=== PATIENT | female | born 1945 | race Caucasian/White ===

== ENCOUNTER → 2019-08-26 | Outpatient (CLI) | payer MEDICARE, OTHER ==
--- NOTE | 2019-08-26 09:08 | RAD ---
DATE: 08/26/2019 EXAM: MAMMO TONJA SCREENING BILATERAL HISTORY: Routine screening COMPARISON: 08/06/2012 and 01/12/2015 mammographic exams This study was interpreted with the benefit of Computerized Aided Detection (CAD). Breast Density: SCATTERED The breast parenchyma shows scattered fibroglandular densities. Breast parenchyma level B. FINDINGS: No suspicious calcifications or distortion. Multiple small masses are present and stable. There is a small asymmetry at the left lower outer breast best seen on the CC projection which is more evident than on prior exams. It is small in size measuring 0.7 cm diameter and is well-circumscribed located 11 cm deep from the nipple. It is in the 5:00 to 6:00 region. IMPRESSION: Left breast asymmetry BI-RADS CATEGORY: 0 INCOMPLETE: NEEDS ADDITIONAL IMAGING EVALUATION AND/OR PRIOR MAMMOGRAMS FOR COMPARISON. RECOMMENDED FOLLOW-UP: ADD ADDITIONAL IMAGING. Spot compression imaging of the left outer breast recommended. Ultrasound may be needed. PQRS compliance statement: Patient information was entered into a reminder system with a target due date for the next mammogram. Mammography is a sensitive method for finding small breast cancers, but it does not detect them all and is not a substitute for careful clinical examination. A negative mammogram does not negate a clinically suspicious finding and should not result in delay in biopsying a clinically suspicious abnormality. "Our facility is accredited by the [employer] Mammography [employer]."
== END | disposition home or self-care (01) ==
LOC: MAMMO 07:43
PROVIDERS: ATTEND Family Medicine
DX: Z12.31 Encounter for screening mammogram for malignant neoplasm of breast (principal); N64.89 Other specified disorders of breast; N63.20 Unspecified lump in the left breast, unspecified quadrant; N63.10 Unspecified lump in the right breast, unspecified quadrant
CPT/HCPCS: 77063; 77067

== ENCOUNTER → 2019-09-07 | Outpatient (CLI) | payer MEDICARE, OTHER ==
--- NOTE | 2019-09-07 18:02 | RAD ---
Study: Ultrasound breast left INDICATION: Left breast callback. COMPARISON: Correlation is made to the screening mammogram from 08/26/2019 TECHNIQUE: Targeted diagnostic sonographic evaluation of a portion of the left breast to evaluate a region of concern seen by screening mammography. FINDINGS: Targeted of the left breast is performed with sonography in the retroareolar region as well as at the lower outer quadrant. At the 5:00 location approximately 9 cm from the nipple, an avascular cluster of small cysts is identified that corresponds to the mammographic abnormality. This area measures approximately 0.5 x 0.2 x 0.6 cm. No findings suspicious for malignancy within the evaluated left breast. IMPRESSION: Small cluster of cysts at the lower/outer quadrant of the left breast. No findings suspicious for malignancy within the evaluated left breast. It is recommended that the patient return for routine screening mammography in one year. BI-RADS 2: Benign findings Electronically signed by: ARIELLA DIOR MD (09/07/2019 5:59 PM) [facility]
== END | disposition home or self-care (01) ==
LOC: US 12:35
PROVIDERS: ATTEND Physician Assistant
DX: N60.02 Solitary cyst of left breast (principal); N63.21 Unspecified lump in the left breast, upper outer quadrant
CPT/HCPCS: 76641

== ENCOUNTER → 2019-12-31 | Outpatient (CLI) | payer MEDICARE, OTHER ==
--- NOTE | 2019-12-31 09:40 | RAD ---
EXAM: CHEST PA LATERAL INDICATION: Cough. TECHNIQUE: PA and lateral views COMPARISON: Abdomen pelvis CT of 08/22/2015 FINDINGS: The heart size is normal. The great vessels appear unremarkable. There is no hilar or mediastinal mass. The lungs are clear. There is no pleural effusion or pneumothorax. No acute osseous abnormalities. Multilevel bridging osteophytes along the thoracic spine with generalized demineralization is present. IMPRESSION: No active cardiopulmonary disease. Multilevel bridging osteophytes in the thoracic spine with demineralization. Query diffuse idiopathic skeletal hyperostosis (DISH). Electronically signed by: Linda Freeman MD (12/31/2019 9:37 AM) [id number]
[2019-12-31 09:57] LABS: BASO % 1 % (0-3); EOS # 0.1 x10^3/uL (0.0-0.7); EOS % 2 % (0-3); LYMPH # 1.6 x10^3/uL (1.0-4.8); LYMPH % 21 % (24-48); MEAN CORPUSCULAR HEMOGLOBIN 30 pg (25-35); MEAN CORPUSCULAR HGB CONC 33 g/dL (31-37); MEAN CORPUSCULAR VOLUME 88 fL (79-100); MONO # 0.5 x10^3/uL (0.0-1.1); MONO % 7 % (0-9); NEUT # 5.5 x10^3uL (1.8-7.7); NEUT % 70 % (31-73); PLATELET COUNT 188 x10^3/uL (140-400); RED BLOOD COUNT 4.41 x10^6/uL (3.50-5.40); WHITE BLOOD COUNT 7.9 x10^3/uL (4.0-11.0)
[2019-12-31 10:14] LABS: ALBUMIN 3.4 g/dL (3.4-5.0); ALBUMIN/GLOBULIN RATIO 1.1 (1.0-1.7); CALCIUM 8.6 mg/dL (8.5-10.1); CREATININE 0.7 mg/dL (0.6-1.0); POTASSIUM 3.9 mmol/L (3.5-5.1); TOTAL BILIRUBIN 0.4 mg/dL (0.2-1.0); TOTAL PROTEIN 6.6 g/dL (6.4-8.2)
== END | disposition home or self-care (01) ==
LOC: LAB 09:08
PROVIDERS: ATTEND Family Medicine
DX: R07.1 Chest pain on breathing (principal); M25.78 Osteophyte, vertebrae
CPT/HCPCS: 36415; 71046; 80053; 82550; 83690; 84484; 85025; 85379

== ENCOUNTER 2021-09-22 12:32 | Emergency (ER) | payer MEDICARE, OTHER ==
[~2021-09-22] VITALS: Ht 162.6 cm; Wt 63.7 kg
[2021-09-22] MEDS ORDERED: IV NORMAL SALINE 1,000ML 1,000 ML IV SCH (13:00)
--- NOTE | 2021-09-22 13:07 | PHYS DOC ---
Past History Past Surgical History: Appendectomy, Cholecystectomy, Hysterectomy, Oophorectomy, Other Additional Past Surgical Histo: bladder surgery (MELISSA GARCIA APRN) General Adult EDM: Chief Complaint: ABDOMINAL PAIN HPI: HPI: Patient is a 76-year-old female who presents emergency department today for right upper quadrant pain that started on Saturday. Patient reports that she was seen at her primary care provider's office on Saturday and they told her that she had a UTI and started her on antibiotic. Patient ports that the pain is worse with movement and deep breathing. She rates it 5 out of 10. No t reatment prior to arrival. Patient states that she continues to take the antibiotic for the UTI but it is not helping with her symptoms. Patient denies any nausea, vomiting, diarrhea, dysuria, urinary frequency/urgency, blood in her stools or vomit, fevers, cough, shortness of breath. Patient has a history of an appendectomy and a cholecystectomy. (MELISSA GARCIA APRN) Review of Systems: Review of Systems: Constitutional: See HPI Respiratory: See HPI Cardiovascular: See HPI GI: See HPI : See HPI (MELISSA GARCIA APRN) Current Medications: Current Meds: Current Medications Medications (Trade) Dose Ordered Sig/Liliana Start Time Stop Time Status Last Admin Dose Admin Fentanyl Citrate (Fentanyl 2ml Vial) 50 mcg 1X ONCE 09/22/21 13:00 09/22/21 13:01 UNV Iohexol (Omnipaque 300 Mg/ml) 75 ml 1X ONCE 09/22/21 13:15 09/22/21 13:16 UNV Sodium Chloride 1,000 ml @ 1,000 mls/hr Q1H 09/22/21 13:00 09/22/21 13:59 UNV (MELISSA GARCIA APRN) Allergies: Allergies: Allergies Coded Allergies Type Severity Reaction Last Updated Verified No Known Drug Allergies 09/22/21 No (MELISSA GARCIA APRN) Physical Exam: PE: Constitutional: Well developed, well nourished, no acute distress, non-toxic appearance. [] HENT: Normocephalic, atraumatic, bilateral external ears normal, oropharynx moist, no oral exudates, nose normal. [] Eyes: PERRL, EOMI, conjunctiva normal, no discharge. [] Neck: Normal range of motion, no stridor Cardiovascular:Heart rate regular rhythm, no murmur [] Lungs & Thorax: Bilateral breath sounds clear to auscultation, right lower anterior rib pain with palpation, no flail chest or obvious deformities or wounds [] Abdomen: Bowel sounds normal, soft, no tenderness, no masses, negative Flaherty sign, no rebound tenderness, no rigidity, no guarding, no pulsatile masses. [] Skin: Warm, dry, no erythema, no rash. [] Back: No tenderness, no CVA tenderness. [] Extremities: No tenderness, no cyanosis, no clubbing, ROM intact, no edema. [] Neurologic: Alert and oriented X 3, normal motor function, normal sensory function, no focal deficits noted. [] Psychologic: Affect normal, judgement normal, mood normal. [] (MELISSA GARCIA APRN) Current Patient Data: Vital Signs: Vital Signs Date Time Temp Pulse Resp B/P (MAP) Pulse Ox O2 Delivery O2 Flow Rate FiO2 09/22/21 12:54 98.1 64 24 142/64 (90) 97 Room Air (MELISSA GARCIA APRN) EKG: EKG: [] (MELISSA GARCIA APRN) Radiology/Procedures: Radiology/Procedures: []PROCEDURE: CT ABD PELV W/ IV CONTRST ONLY EXAMINATION: CT abdomen and pelvis with IV contrast. INDICATION:76 years, Female, right upper quadrant abdominal pain. TECHNIQUE: Axial CT images of the abdomen and pelvis were obtained. Coronal and sagittal reformatted performed. COMPARISON: CT dated 08/22/2015. Exposure: One or more of the following individualized dose reduction techniques were utilized for this examination: 1. Automated exposure control 2. Adjustment of the mA and/or kV according to patient size 3. Use of iterative reconstruction technique. FINDINGS: LOWER CHEST: Dependent bibasilar subsegmental atelectasis and/or scarring. ABDOMEN/PELVIS: There is a 9.7 x 7.3 x 8.7 cm fluid density cystic mass with thin rim enhancement seen in hepatic segment 4, causing mild mass effect upon the cristopher hepatis and bile duct. This lesion is increasing in size since August 2015 which measures 4.5 x 3.1 x 4.0 cm. Additional, fluid density cystic lesion in hepatic segment 7 measures 2.5 x 1.5 cm, decreasing in size since prior exam which measures 3.8 x 2.0 cm. Cholecystectomy. Mildly dilated central intrahepatic and extrahepatic biliary ducts with smooth tapering distally, the maximum diameter of the common bile duct measures 1.5 cm, increasing since prior exam. No calcified choledocholithiasis identified. Subcentimeter hypodensity in the spleen, too small to characterize. Moderate atrophic pancreas with fat infiltration. No pancreatic ductal dilation. No hydronephrosis or nephrolithiasis in either kidney. Simple appearing 5.3 cm cyst in the upper pole left kidney, increasing in size since 2015. Additional, subcentimeter hypodensity in the right renal cortex, too small to characterize. No bowel obstruction or wall thickening. Colonic diverticulosis without acute diverticulitis. Appendix is nonvisualized. Normal caliber abdominal aorta. Mesenteric arteries and portal vein are patent. Circumaortic left renal vein. No pneumoperitoneum or ascites. No lymphadenopathy in the abdomen or pelvis by size criteria. Decompressed urinary bladder which limits evaluation. Unchanged 0.9 cm urinary bladder calculus. Hysterectomy. No suspicious pelvic masses. 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 MUSCULOSKELETAL STRUCTURES: No acute osseous process or suspicious lesion. Multilevel degenerative changes in the spine. Diffuse osteopenia. Unchanged sclerotic focus at L3 vertebral body, likely bone island. Small fat-containing umbilical hernia. IMPRESSION: 1. No acute abnormality in the abdomen or pelvis. 2. A 9.7 x 7.3 x 8.7 cm, hepatic segment 4 cyst with thin rim enhancement, increasing in size since August 2015 which measures 4.5 x 3.1 x 4.0 cm. Recommend further evaluation with nonemergent MRI liver without and with IV contrast. 2. Additional, 2.5 cm cyst in hepatic segment 7, decreasing in size since prior exam. 4. Mildly dilated central intrahepatic and extrahepatic biliary ducts with smooth tapering distally, likely secondary to postcholecystectomy status. Recommend correlation with liver function test. 5. Unchanged 0.9 cm urinary bladder stone. 6. Other chronic/incidental findings, as described above. Electronically signed by: Bayron Latham MD (09/22/2021 3:06 PM) [id number] (MELISSA GARCIA APRN) Heart Score: C/O Chest Pain: No Risk Factors: Risk Factors: DM, Current or recent (<one month) smoker, HTN, HLP, family history of CAD, obesity. Risk Scores: Score 0 - 3: 2.5% MACE over next 6 weeks - Discharge Home Score 4 - 6: 20.3% MACE over next 6 weeks - Admit for Clinical Observation Score 7 - 10: 72.7% MACE over next 6 weeks - Early Invasive Strategies (MELISSA GARCIA APRN) Course & Med Decision Making: Course & Med Decision Making Pertinent Labs and Imaging studies reviewed. (See chart for details) [] Patient presents to the emergency department today for right upper quadrant pain that is worse with movement and deep breathing. Patient reports that she had a history of UTI on Saturday and was treated with an antibiotic but states that that is not improving her symptoms. She denies any nausea, vomiting, diarrhea she denies any urinary symptoms. Her pain upon physical assessment is in the right anterior lower ribs however she denies any coughing or shortness of breath. Work-up in the ER consisted of blood work, urinalysis and CT imaging of abdomen and pelvis. Patient has a history of appendectomy and cholecystectomy. Patient reports improvement in her pain after treatment in the ER. Patient's urinalysis was positive for an infection and she is currently undergoing treatment for that. Remaining of patient's lab work was unremarkable. Her AST was 10 her [address] was 20[address] imaging of her abdomen and pelvis shows 2 hepatic cysts. Patient's last CT of her abdomen in 2014 shows 1 hepatic cyst and that cyst has almost doubled in size. Discussed these findings with patient, she would like to be discharged home with pain medication as she states that her pain is not too severe to be admitted for intractable abdominal pain. Patient states that she has a GI doctor, Jerson MATSON and she can follow-up with them regarding her hepatic cyst. Patient's vital signs are stable and she is in no acute distress. I think this is appropriate for patient. She will be discharged home with pain medication and advised to increase her fiber as this may cause constipation. She was advised to follow-up with his GI doctor soon as possible. I discussed with patient all findings and diagnostic testing as well as the need to follow-up with PCP for further evaluation and treatment or return to the ER if any new or worsening symptoms. Strict return precautions were also discussed at length. Patient voiced understanding and agreement with the plan. Patient is hemodynamically stable at the time of disposition. (MELISSA GARCIA APRN) Dragon Disclaimer: Dragon Disclaimer: This electronic medical record was generated, in whole or in part, using a voice recognition dictation system. (MELISSA GARCIA APRN) Attending Co-Sign The patient was seen and interviewed as well as examined at the bedside. The chart was reviewed. The case was discussed. Agree with the plan of care. (DIGNA HERNANDEZ DO) Departure Departure: Impression: Primary Impression: Hepatic cyst Additional Impression: Abdominal pain Qualified Codes: R10.11 - Right upper quadrant pain Disposition: HOME / SELF CARE / HOMELESS Condition: GOOD Referrals: GREGORIO DAVIS MD (PCP) Patient Instructions: Abdominal Pain (Nonspecific) Additional Instructions: You were seen in the emergency department today for right upper abdominal pain. Your blood work was unremarkable. Continue taking the antibiotic prescribed by your primary care provider for your urinary tract infection. The imaging shows a hepatic cyst. As we discussed, these may need to be drained by GI doctor. Please follow-up with the GI doctor soon as possible. You are being discharged home with pain medication. This medication is hydrocodone and Tylenol combination tablet. Do not take any additional Tylenol with this medication. This medication may cause sedation so do not take any need to be alert, driving a vehicle or with alcohol. This medication may also cause constipation so you may need to increase your fiber intake. Please follow-up with your primary care provider regarding your ER visit. I would contact them on Saturday to set up a follow-up appointment or the GI doctor. Return to the emergency department if you develop worsening of your abdominal pain, intractable nausea vomiting, blood in your stools or vomit, high fevers refractory to treatment or any new or worsening concerns. Scripts Hydrocodone Bit/Acetaminophen (HYDROCODONE-APAP 5-325 ) 1 Each Tablet 1 TAB PO PRN Q6HRS PRN for PAIN for 2 Days, #8 TAB 0 Refills Prov: MELISSA GARCIA APRN 09/22/21 MELISSA GARCIA APRN Sep 22, 2021 13:07 DIGNA HERNANDEZ DO Sep 23, 2021 15:56
[2021-09-22] MEDS ORDERED: IOHEXOL 300 MG/ML 75 ML VIAL. IV ONE (13:15)
[2021-09-22 13:39] LABS: BASO # 0.1 x10^3/uL (0.0-0.2); BASO % 1 % (0-3); EOS # 0.3 x10^3/uL (0.0-0.7); EOS % 3 % (0-3); HEMATOCRIT 42.1 % (36.0-47.0); HEMOGLOBIN 13.9 g/dL (12.0-15.5); LYMPH # 2.6 x10^3/uL (1.0-4.8); LYMPH % 30 % (24-48); MEAN CORPUSCULAR HEMOGLOBIN 29 pg (25-35); MEAN CORPUSCULAR HGB CONC 33 g/dL (31-37); MEAN CORPUSCULAR VOLUME 89 fL (79-100); MONO # 0.7 x10^3/uL (0.0-1.1); MONO % 8 % (0-9); NEUT # 5.1 x10^3uL (1.8-7.7); NEUT % 58 % (31-73); PLATELET COUNT 216 x10^3/uL (140-400); RED BLOOD COUNT 4.72 x10^6/uL (3.50-5.40); RED CELL DISTRIBUTION WIDTH 13.2 % (11.5-14.5); WHITE BLOOD COUNT 8.7 x10^3/uL (4.0-11.0)
[2021-09-22 13:48] LABS: CALCIUM 8.9 mg/dL (8.5-10.1); CREATININE 0.6 mg/dL (0.6-1.0); GFR 97.5; POTASSIUM 3.8 mmol/L (3.5-5.1)
[2021-09-22 13:51] LABS: BILIRUBIN,URINE NEG (NEG); CLARITY,URINE CLEAR; COLOR,URINE YELLOW; GLUCOSE,URINE NEG (NEG); NITRITE,URINE NEG (NEG); UROBILINOGEN,URINE 0.2 mg/dL (0.2 mg/dL)
[2021-09-22 13:52] LABS: BACTERIA,URINE FEW /HPF (0-FEW); RBC,URINE OCC /HPF (0-2); SQUAMOUS EPITHELIAL CELL,UR OCC /LPF
[2021-09-22 13:54] LABS: ALBUMIN 3.8 g/dL (3.4-5.0); ALBUMIN/GLOBULIN RATIO 1.1 (1.0-1.7); TOTAL BILIRUBIN 0.3 mg/dL (0.2-1.0); TOTAL PROTEIN 7.3 g/dL (6.4-8.2)
--- NOTE | 2021-09-22 15:08 | RAD ---
EXAMINATION: CT abdomen and pelvis with IV contrast. INDICATION:76 years, Female, right upper quadrant abdominal pain. TECHNIQUE: Axial CT images of the abdomen and pelvis were obtained. Coronal and sagittal reformatted performed. COMPARISON: CT dated 08/22/2015. Exposure: One or more of the following individualized dose reduction techniques were utilized for thi s examination: 1. Automated exposure control 2. Adjustment of the mA and/or kV according to patient size 3. Use of iterative reconstruction technique. FINDINGS: LOWER CHEST: Dependent bibasilar subsegmental atelectasis and/or scarring. ABDOMEN/PELVIS: There is a 9.7 x 7.3 x 8.7 cm fluid density cystic mass with thin rim enhancement seen in hepatic seg ment 4, causing mild mass effect upon the cristopher hepatis and bile duct. This lesion is increasing in s ize since August 2015 which measures 4.5 x 3.1 x 4.0 cm. Additional, fluid density cystic lesion in hepatic segment 7 measures 2.5 x 1.5 cm, decreasing in size since prior exam which measures 3.8 x 2. 0 cm. Cholecystectomy. Mildly dilated central intrahepatic and extrahepatic biliary ducts with smooth tapering distally, the maximum diameter of the common bile duct measures 1.5 cm, increasing since pr ior exam. No calcified choledocholithiasis identified. Subcentimeter hypodensity in the spleen, too s mall to characterize. Moderate atrophic pancreas with fat infiltration. No pancreatic ductal dilation . No hydronephrosis or nephrolithiasis in either kidney. Simple appearing 5.3 cm cyst in the upper po le left kidney, increasing in size since 2015. Additional, subcentimeter hypodensity in the right jane al cortex, too small to characterize. No bowel obstruction or wall thickening. Colonic diverticulosis without acute diverticulitis. Appendi x is nonvisualized. Normal caliber abdominal aorta. Mesenteric arteries and portal vein are patent. C ircumaortic left renal vein. No pneumoperitoneum or ascites. No lymphadenopathy in the abdomen or pel vis by size criteria. Decompressed urinary bladder which limits evaluation. Unchanged 0.9 cm urinary bladder calculus. Hysterectomy. No suspicious pelvic masses. Findings of pelvic floor insufficiency w ith descending bladder base below the pubococcygeal line about 1.3 cm, similar to prior exam. MUSCULOSKELETAL STRUCTURES: No acute osseous process or suspicious lesion. Multilevel degenerative changes in the spine. Diffuse osteopenia. Unchanged sclerotic focus at L3 vertebral body, likely bone island. Small fat-containing umbilical hernia. IMPRESSION: 1. No acute abnormality in the abdomen or pelvis. 2. A 9.7 x 7.3 x 8.7 cm, hepatic segment 4 cyst with thin rim enhancement, increasing in size since N ov2014 which measures 4.5 x 3.1 x 4.0 cm. Recommend further evaluation with nonemergent MRI kirt er without and with IV contrast. 2. Additional, 2.5 cm cyst in hepatic segment 7, decreasing in size since prior exam. 4. Mildly dilated central intrahepatic and extrahepatic biliary ducts with smooth tapering distally, likely secondary to postcholecystectomy status. Recommend correlation with liver function test. 5. Unchanged 0.9 cm urinary bladder stone. 6. Other chronic/incidental findings, as described above. Electronically signed by: Bayron Latham MD (09/22/2021 3:06 PM) [id number]
[2021-09-22] MEDS ORDERED: MORPHINE SULFATE 4 MG/ML DISP.SYRIN. IV ONE (15:30)
[2021-09-22] MEDS ORDERED: HYDR-2155 PO (15:40)
[2021-09-22 16:20] VITALS: BP 134/66
== END 2021-09-22 16:20 | disposition home or self-care (01) ==
LOC: ER 12:32
DX: K76.89 Other specified diseases of liver (principal); Z90.49 Acquired absence of other specified parts of digestive tract; Z90.710 Acquired absence of both cervix and uterus
CPT/HCPCS: 36415; 74177; 80053; 81001; 83690; 85025; 87086; 96361; 96374; 99285; J3010; J7030; Q9967